=== PATIENT | female | born 1975 | race Caucasian/White ===

== ENCOUNTER 2016-09-12 15:32 | Emergency (ER) | payer OTHER ==
[2016-09-12 15:49] VITALS: BP 126/079
[2016-09-12] MEDS ORDERED: DECADRON IM ONE (16:07)
[2016-09-12] MEDS ORDERED: DUONEB (A & A) INH ONE (16:07)
--- NOTE | 2016-09-12 16:08 | PROVIDER DOCUMENTATION ---
HPI-Respiratory General <Jolanta GarnerOctavio - Last Filed: 09/12/16 16:07> - General Source: patient - History of Present Illness-Resp Quality of Pain: reports: tightness Severity in ED: reports: moderate Onset/Duration: reports: gradual, 3 days ago Timing: reports: still present, constant Context: reports: multiple patients with similar complaints Cough Quality/Degree: reports: moderate, dry cough Episode Frequency: occasional episodes Current Respiratory Medication Therapy: Initiated see nurses note Modifying Factors: worse with: coughing Associated Symptoms: reports: cough, fever/chills, headache, shortness of breath , short of breath, wheezing. denies: facial pain, flu-like symptoms, nasal congestion, nasal drainage Similar Symptoms Previously?: No Recently seen or treated by another doctor?: No <Migel العلي - Last Filed: 09/12/16 16:18> - General Chief Complaint: Cold Symptoms Stated Complaint: B/P PROB Time Seen by Provider: 09/12/16 15:57 Allergies/Adverse Reactions: Patient Allergies Allergy/AdvReac Type Severity Reaction Status Date / Time cephalexin monohydrate * AdvReac NAUSEA/VOMI Verified 09/12/16 15:49 [From Keflex] TING Home Medications: Albuterol Sulfate Inhaler [Ventolin Hfa] 2 09/12/16 Diazepam [Valium] 5 mg PO DAILY 09/12/16 Fluoxetine HCl [Prozac] 10 mg PO DAILY 09/12/16 - History of Present Illness-Resp Nature of Presenting Problem: patient is a 41 yo F that presents with cough/congestion, wheezing, and headache x 3 days. She reports a subjective fever. Denies sore throat or earache. Patient has used albuterol at home with no relief of symptoms. (Migel العلي) Review of Systems - Adult - REVIEW OF SYSTEMS - ADULT Constitutional: reports: chills, fever Eyes: reports: no symptoms reported Ears, Nose, Mouth & Throat: denies: ear pain, sinus problem, throat pain, throat swelling Cardiovascular: reports: no symptoms reported Respiratory: reports: cough, shortness of breath, wheezing Gastrointestinal: denies: abdominal pain, diarrhea, nausea, vomiting Genitourinary: reports: no symptoms reported Musculoskeletal: reports: no symptoms reported Integumentary: reports: no symptoms reported Neurological: reports: headache/migraines. denies: dizziness/vertigo, seizure Psychiatric: reports: no symptoms reported Endocrine: reports: no symptoms reported Hematologic/Lymphatic: reports: no symptoms reported Allergic/Immunologic: reports: no symptoms reported All Other Systems: Reviewed and Negative <Migel العلي - Last Filed: 09/12/16 16:18> Past History - Adult - PAST MEDICAL HISTORY-ADULT Major Childhood Illnesses: reports: denies history Cardiovascular: reports: HTN Respiratory: reports: denies history Gastrointestinal: reports: hepatitis (C) Obstetrical/Gynecological: reports: denies history Genitourinary: reports: denies history Musculoskeletal: reports: chronic pain (neck ) Neurological: reports: headaches/migraines Psychiatric: reports: anxiety, depression Endocrine/Immune: reports: denies history Other Conditions: reports: denies history - PRIOR SURGERIES/PROCEDURES Surgical/Procedure History: reports: cholecystectomy, hysterectomy, - IMMUNIZATION STATUS Childhood Immunizations: See Nurse Assessment Flu Vaccine: See Nurse Assessment - FAMILY HISTORY Family History: reviewed, not pertinent <Jolanta Garner - Last Filed: 09/12/16 16:07> - PAST MEDICAL HISTORY-ADULT Review of Records: reports: Old Records Reviewed, Nursing Assessment Review, Medications Reviewed Cardiovascular: reports: HTN Musculoskeletal: reports: chronic pain (neck) Neurological: reports: headaches/migraines Psychiatric: reports: anxiety, depression - PRIOR SURGERIES/PROCEDURES Surgical/Procedure History: reports: cholecystectomy, hysterectomy, - IMMUNIZATION STATUS Childhood Immunizations: See Nurse Assessment Flu Vaccine: See Nurse Assessment - FAMILY HISTORY Family History: reviewed, not pertinent - SOCIAL HISTORY Smoking: cigarettes, less than 1 pack/day <Migel العلي - Last Filed: 09/12/16 16:18> Physical Exam-General - PHYSICAL EXAM-ADULT Initial Vital Signs Reviewed: Yes - CONSTITUTIONAL General Appearance: alert, no apparent distress - EYES Eyes: PERRL/EOMI, pink conjunctivae - HEAD, EARS, NOSE, MOUTH & THROAT HENMT: normocephalic/atraumatic, moist mucous membranes, normal ENT inspection - NECK Neck: full range of motion, normal inspection - RESPIRATORY Respiratory: no respiratory distress, no accessory muscle use, wheezing ( throughout bilaterally), other (increased expiratory phase) - CARDIOVASCULAR Cardiovascular: regular rate, rhythm, no edema, no JVD - GASTROINTESTINAL (ABDOMEN) Abdominal Exam: normal bowel sounds, non tender, soft - MUSCULOSKELETAL Extremity: normal range of motion, normal inspection, no pedal edema, normal capillary refill - SKIN Integumentary: normal color, warm/dry - NEUROLOGIC Neurologic: grossly normal, no motor/sensory deficits - PSYCHIATRIC Psych/Mental Status: normal mood/affect, normal thought content, normal thought process, oriented x 3 <Migel العلي - Last Filed: 09/12/16 16:18> Progress <Jolanta Garner - Last Filed: 09/12/16 16:07> <Migel العلي - Last Filed: 09/12/16 16:18> - PLAN OF CARE/RESULTS Progress/Plan/Lab Results: Vital Signs Temp Pulse Resp BP Pulse Ox 09/12/16 15:42 98.8 F 83 20 126/079 95 cephalexin monohydrate * [From Keflex] Adverse Reaction (Verified 09/12/16 15:49 ) NAUSEA/VOMITING Albuterol Sulfate Inhaler [Ventolin Hfa] 2 09/12/16 Azithromycin [Zithromax Z-David] 250 mg PO DIRECTED #1 pkg 09/12/16 Diazepam [Valium] 5 mg PO DAILY 09/12/16 Fluoxetine HCl [Prozac] 10 mg PO DAILY 09/12/16 Prednisone [Deltasone] 20 mg PO DIRECTED #12 tablet 09/12/16 Orders Category Date Time Status Albuterol 2.5MG/Ipratrop 0.5MG [Duoneb (A & A)] Med 09/12/16 16:07 Discontinued 3 ml INH NOW ONE Dexamethasone [Decadron] Med 09/12/16 16:07 Discontinued 4 mg IM NOW ONE Aerosol Treatments Routine Oth 09/12/16 16:07 Active Aerosol Treatments Stat Oth 09/12/16 16:07 Active (Migel العلي) Departure - Departure Time of Disposition Order: 16:07 Certified Medical Emergency: Emergent <Jolanta Garner - Last Filed: 09/12/16 16:07> <Migel العلي - Last Filed: 09/12/16 16:18> - Departure DIAGNOSIS: Bronchitis Disposition: HOME 01 Condition: Stable Additional Instructions: ED Follow Up Instructions: You have been treated by a care provider in the Emergency Department. These instructions are being provided to you so you can have an understanding of how to care for yourself upon discharge. Upon discharge from the Emergency Department, you are responsible for making arrangements for follow-up care by a physician of your choice. Take all prescribed medications as directed. Return to the Emergency Department immediately for any new or worsening symptoms. You may call the Physician Referral phone number at [phone] to obtain a list of Physicians who are taking new patients. Prescriptions: Prednisone [Deltasone] 20 mg PO DIRECTED #12 tablet Azithromycin [Zithromax Z-David] 250 mg PO DIRECTED #1 pkg Referrals: None,PCP [Primary Care Provider] - Tiffany Kapoor MD [STAFF PHYSICIAN] - Forms: Return to School/Parent Work Instructions: Azithromycin tablets, Prednisone tablets, Acute Bronchitis Attestation - Scribe Verification/Attestation Scribe:: Migel العلي Acting as Scribe for:: Jolanta Garner Scribe documention review:: This chart was documented by a scribe and accurately reflects the service the provider performed and the decisions made by the provider. - Physician/ Mid-level Attestation Patient care was provided by Mid-level provider (HEALTH INFORMATION ASSISTANT/PA):: Yes Mid-level provider:: Jolanta Garner Mid-level documentation review:: The Mid-level provider documentation, treatment plan and medical decision making was reviewed by the physician who agrees with all treatment and medical decision making by the [facility]. <Migel العلي - Last Filed: 09/12/16 16:18> Physician Attestation
== END 2016-09-12 16:39 | disposition home or self-care (01) ==
LOC: P.ED 15:32
DX: J40 Bronchitis, not specified as acute or chronic (principal); R05 Cough; R50.9 Fever, unspecified; R51 Headache; R06.02 Shortness of breath; R06.2 Wheezing; I10 Essential (primary) hypertension; B19.20 Unspecified viral hepatitis C without hepatic coma; Z79.899 Other long term (current) drug therapy; G89.29 Other chronic pain; M54.2 Cervicalgia; F41.9 Anxiety disorder, unspecified; F32.9 Major depressive disorder, single episode, unspecified; F17.210 Nicotine dependence, cigarettes, uncomplicated
CPT/HCPCS: 94640; 96372; J1100